=== PATIENT | male | born 1980 | race Caucasian/White ===

== ENCOUNTER 2022-05-05 14:50 | Emergency (ER) | payer MEDICARE, MEDICAID ==
[2022-05-05 14:50] VITALS: BP_SYST 150; BP_SYST 155; BP_DIAS 65; BP_DIAS 81
[2022-05-05] MEDS ORDERED: ATIVAN IV STA (15:08)
[2022-05-05] MEDS ORDERED: NORCO 7.5MG PO STA (15:08)
--- NOTE | 2022-05-05 15:11 | ER.PDOC ---
General Chief Complaint: Seizure Stated Complaint: SEIZURE Time seen by MD: 15:11 Source: patient Exam Limitations: no limitations History of Present Illness Timing/Onset/Duration: Single Episode Preceding Symptoms/Context: missed dose of medication Character Of Seizures: partially Motor Activity: shaking all over Injury: back Prior symptoms/Treatment: Similar symptoms previous Allergies: Coded Allergies: carbamazepine (Verified Allergy, Unknown, 05/05/22) peanut (Verified Allergy, Unknown, 05/05/22) penicillin G (Verified Allergy, Unknown, 05/05/22) phenobarbital (Verified Allergy, Unknown, 05/05/22) Past Medical History Medical History: other Surgical History: no surgical history Social History Alcohol Use: none Drug Use: none Reviewed Nursing Reviewed: Vital Signs, Abn. Noted All Other Systems: Reviewed and Negative Physical Exam General Appearance: alert, no distress EENT: nml eye inspection, PERRL, no nystagmus, nml ENT inspection, no apparent, pharynx nml, no CSF leak Neck/Back: neck supple, non-tender Respiratory: no resp distress, breath sounds nml, no evidence of rib injury CVS: reg rate & rhythm, heart sounds nml Abdomen: non-tender, no organomegaly, no distention Skin: color nml, no rash, warm/dry Extremities: non-tender, nml ROM, no pedal edema Neuro/Psych: oriented x 3, speech nml, mood/affect nml Cerebellar: nml tested, nml Romberg Sensorimotor: no motor deficit, no sensory deficit, reflexes nml Results/Orders Results/Orders Orders - FRANCOISE BAUMANN MD Lorazepam (Ativan) (05/05/22 15:08) Hydrocodone/Acetaminophen (Maple 7.5mg) (05/05/22 15:08) Cbc With Auto Diff (05/05/22 15:21) Comprehensive Metabolic Panel (05/05/22 15:21) Ekg-Routine (05/05/22 15:21) Ammonia (05/05/22 15:21) Valproate (05/05/22 15:21) Magnesium (05/05/22 15:21) Ct Head Wo Contrast (05/05/22 15:30) Lorazepam (Ativan) (05/05/22 15:31) Hydrocodone/Acetaminophen (Maple 7.5mg) (05/05/22 15:31) Divalproex Sodium (Depakote Er) (05/05/22 16:35) Valproic Acid (Depakene) (05/05/22 17:00) Vital Signs Date Time Temp Pulse Resp B/P (MAP) Pulse Ox O2 Delivery O2 Flow Rate FiO2 05/05/22 14:50 98.0 90 18 05/05/22 14:50 98.0 90 18 98 05/05/22 14:50 98.0 90 18 155/65 (95) 98 Room Air* 0 21 Administered Medications Medications (Trade) Dose Ordered Sig/Puneet Route PRN Reason Start Time Stop Time Status Last Admin Dose Admin Acetaminophen/ Hydrocodone Bitart (Maple 7.5mg) 1 each STAT STAT PO 05/05/22 15:08 05/05/22 15:09 DC 05/05/22 15:41 1 EACH Lorazepam (Ativan) 1 mg STAT STAT IV 05/05/22 15:08 05/05/22 15:09 DC 05/05/22 15:41 1 MG Valproic Acid (Depakene) 500 mg OT ONCE PO 05/05/22 17:00 05/05/22 17:01 DC 05/05/22 16:55 500 MG Laboratory Tests Test 05/05/22 15:36 White Blood Count 7.0 10^3/uL (4.5-11.0) Red Blood Count 4.47 10^6/uL (4.50-5.90) L Hemoglobin 14.6 g/dL (13.9-16.3) Hematocrit 41.1 % (37.0-53.0) Mean Corpuscular Volume 91.9 fL (78-100) Mean Corpuscular Hemoglobin 32.7 pg (26-34) Mean Corpuscular Hemoglobin Concent 35.5 g/dL (33-36.5) Red Cell Distribution Width 11.9 % (11.5-14.5) Platelet Count 258 10^3/uL (150-400) Mean Platelet Volume 8.4 fL (7.8-11.0) Neutrophils (%) (Auto) 56.9 % (41.0-85.0) Lymphocytes (%) (Auto) 32.1 % (24.0-44.0) Monocytes (%) (Auto) 9.4 % (5.0-12.0) Neutrophils # (Auto) 4.0 10^3/uL (1.8-7.7) Lymphocytes # (Auto) 2.26 10^3/uL1 (1.0-4.8) Monocytes # (Auto) 0.7 10^3/uL (0.3-0.8) Absolute Immature Granulocyte (auto 0.06 10^3 u/L (0-2) Absolute Eosinophils (auto) 0.0 10^3/uL (0.0-0.2) Immature Granulocytes % 0.90 % (0.00-0.50) H Eosinophils % 0.3 % (0.0-5.0) Basophils % 0.4 % (0.0-0.2) H Basophils # 0.0 10^3/uL (0.0-0.1) Sodium Level 122 mmol/L (132-145) L Potassium Level 3.9 mmol/L (3.6-5.2) Chloride Level 88.0 mmol/L (96-109) L Carbon Dioxide Level 26.1 mmol/L (20.0-32) Anion Gap 11.8 Blood Urea Nitrogen 5 mg/dL (7-18) L Creatinine 1.08 mg/dL (0.59-1.40) Estimated GFR () 90.3 (>/=60) Est GFR (CKD-EPI)(Non-Afr Citizen Of [place]) 74.6 (>/=60) BUN/Creatinine Ratio 4.0 Glucose Level 80 mg/dL (70-110) Calcium Level 8.1 mg/dL (8.4-10.5) L Magnesium Level 1.7 mg/dL (1.8-2.4) L Total Bilirubin 0.5 mg/dL (0.2-1.0) Aspartate Amino Transferase (AST) 17 U/L (0-35) Alanine Aminotransferase (ALT) 22 U/L (12-78) Alkaline Phosphatase 58 U/L (50-136) Ammonia 6 umol/L (11-35) L Total Protein 6.5 g/dL (6.4-8.2) Albumin 3.3 g/dL (3.4-5.0) L Globulin 3.2 Albumin/Globulin Ratio 1.031 Valproic Acid Level 33 ug/mL (50-100) L Consult/PCP Time Consult/PCP Called: 17:00 Consult/PCP: dr barnett answering service ER DEPART Departure Time of Disposition: 17:00 Disposition: 01 HOME / SELF CARE / HOMELESS Impression: Primary Impression: Epilepsy Condition: Improved Duration or Time Spent with Pa: FRANCOISE Palafox MD May 05, 2022 15:11
[2022-05-05] MEDS ORDERED: ATIVAN ONE (15:31)
[2022-05-05] MEDS ORDERED: NORCO 7.5MG PO ONE (15:31)
[2022-05-05 15:45] LABS: BASOPHIL % 0.4 % (0.0-0.2); EOSINOPHIL % 0.3 % (0.0-5.0); LYMPHOCYTES # 2.26 10^3/uL1 (1.0-4.8); LYMPHOCYTES % 32.1 % (24.0-44.0); MEAN CORP HGB 32.7 pg (26-34); MONOCYTES # 0.7 10^3/uL (0.3-0.8); MONOCYTES % 9.4 % (5.0-12.0); NEUTROPHILS % 56.9 % (41.0-85.0); PLATELET COUNT 258 10^3/uL (150-400); RED CELL DISTRIBUTION WIDTH 11.9 % (11.5-14.5)
[2022-05-05 15:59] LABS: CARBON DIOXIDE 26.1 mmol/L (20.0-32)
--- NOTE | 2022-05-05 16:19 | DIREP ---
PROCEDURE:CT HEAD OR BRAIN W/O CONTRAST COMPARISON:None. INDICATIONS:sz TECHNIQUE:CT images were created without intravenous contrast. FINDINGS: VENTRICLES: The ventricles are normal in size and configuration. CEREBRUM: Normal cerebral morphology with appropriate [place] white matter differentiation. CEREBELLUM: Negative. BRAINSTEM: Negative. BASAL CISTERNS: Negative. SKULL: Normal. No fractures. No lytic or blastic lesion of bone. SINUSES: Normal. OTHER: No acute intracranial hemorrhage, large territorial infarct, CT evidence of acute infarct, abnormal extra-axial fluid collection, or intracranial mass effect. CONCLUSION: Normal noncontrast CT scan of the brain. Dictated by: Rodger Chiang M.D. on 05/05/2022 at 04:17 PM
--- NOTE | 2022-05-05 16:26 | PCM.EKG ---
[facility] Test Date: 2022-05-05 Test Time: 16:21:50 Pat Name: CARLINE BATEMAN Department: Room: Gender: M Wire Worker: EC : 1980 Requested By: FRANCOISE BAUMANN Order Number: [id number] Reading MD: Measurements Intervals [place] Rate: 72 P: 54 AR: 148 QRS: 28 QRSD: 93 T: 51 QT: 403 QTc: 442 Interpretive Statements Sinus rhythm No previous ECG available for comparison Please click the below link to view image of tracing.
[2022-05-05] MEDS ORDERED: DEPAKOTE ER PO ONE (16:35)
[2022-05-05] MEDS ORDERED: DEPAKENE PO ONE (17:00)
== END 2022-05-05 17:17 | disposition home or self-care (01) ==
LOC: EDBD 14:50 → ER 14:50
DX: G40.909 Epilepsy, unspecified, not intractable, without status epilepticus (principal); Z88.0 Allergy status to penicillin
CPT/HCPCS: 99285; 96374; 70450; 80053; 85025; 36415; 82140; 83735; 80164; 93005; J2060

== ENCOUNTER 2022-05-05 18:40 | Emergency (ER) | payer MEDICARE, MEDICAID ==
[~2022-05-05] VITALS: Ht 175.3 cm; Wt 82.1 kg
[2022-05-05 18:43] VITALS: BP 117/64
--- NOTE | 2022-05-05 19:05 | ER.PDOC ---
General Chief Complaint: Seizure Stated Complaint: seizure Time seen by MD: 19:00 Source: patient, RN/MD, EMS Exam Limitations: no limitations History of Present Illness Initial Comments Second seizure within 2 hours patient was seen 2 hours earlier and extra Depakote was given Character Of Seizures: unresponsive, partially Motor Activity: shaking all over Post-ictal Symptoms: confusion Injury: none Prior symptoms/Treatment: Similar symptoms previous, Recenly Seen, Treated by Doctor Allergies: Coded Allergies: carbamazepine (Verified Allergy, Unknown, 05/05/22) peanut (Verified Allergy, Unknown, 05/05/22) penicillin G (Verified Allergy, Unknown, 05/05/22) phenobarbital (Verified Allergy, Unknown, 05/05/22) Past Medical History Medical History: parkinson, other Surgical History: no surgical history Social History Alcohol Use: none Drug Use: none Reviewed Nursing Reviewed: Vital Signs, Abn. Noted All Other Systems: Reviewed and Negative Physical Exam General Appearance: alert, no distress EENT: nml eye inspection, PERRL, no nystagmus, nml ENT inspection, no apparent, pharynx nml, no CSF leak Neck/Back: neck supple, non-tender Respiratory: no resp distress, breath sounds nml, no evidence of rib injury CVS: reg rate & rhythm, heart sounds nml Skin: color nml, no rash, warm/dry Extremities: non-tender, nml ROM, no pedal edema Neuro/Psych: oriented x 3, speech nml, mood/affect nml Cerebellar: nml tested, nml Romberg Sensorimotor: no motor deficit, no sensory deficit, reflexes nml Results/Orders Results/Orders Vital Signs Date Time Temp Pulse Resp B/P (MAP) Pulse Ox O2 Delivery O2 Flow Rate FiO2 05/05/22 18:43 98.3 70 18 95 05/05/22 18:43 98.3 70 18 117/64 (81) 95 Room Air* 0 21 Consult/PCP Time Consult/PCP Called: 19:00 Consult/PCP: DR JANET ANDRADE DEPART Departure Time of Disposition: 19:00 Disposition: 02 SHORT TERM HOSPITAL Impression: Primary Impression: Convulsions Condition: Improved Referrals: PCP,UNKNOWN (PCP) PRIMARY CARE PROVIDER Duration or Time Spent with Pa: FRANCOISE TRENT MD May 05, 2022 19:05
--- NOTE | 2022-05-05 19:06 | NUR ---
Attempted report to [facility], no answer
--- NOTE | 2022-05-05 20:23 | NUR ---
Report called to [facility]. Awaiting EMS arrival for transport
--- NOTE | 2022-05-05 21:05 | NUR ---
[facility] arrived to transport patient to [facility] in [place]. Patient out with EMS
== END 2022-05-05 21:07 | disposition short-term general hospital (02) ==
LOC: ER 18:40 → EDBD 18:40 → ER 21:07
DX: R56.9 Unspecified convulsions (principal); Z88.0 Allergy status to penicillin
CPT/HCPCS: 99285